=== PATIENT | male | born 1980 | race Caucasian/White ===

== ENCOUNTER 2023-12-01 20:07 | Emergency (ER) | payer OTHER, SELFPAY ==
--- NOTE | ~2023-12-01 | CT_ITS ---
EXAMINATION: CT MAXILLOFACIAL WITHOUT CONTRAST CLINICAL INFORMATION: Jaw pain, injury COMPARISON: None TECHNIQUE: Serial contiguous axial images were obtained through the maxillofacial bones without intravenous contrast. Reconstructed axial, coronal, and sagittal images were reviewed. This CT examination was performed using dose optimization techniques as appropriate, variously including the following: *Automated exposure control *Adjustment of mA and/or kV according to patient size (this includes techniques or standardized protocols for targeted exams where dose is matched to indication/reason for exam; i.e. extremities or head) *Use of iterative reconstruction technique DLP: 231 mGy-cm FINDINGS: No acute fractures are identified. The globes, lenses, extraocular muscles, optic nerves, and intraconal fat appear within normal limits bilaterally. The lamina paprycea and floor and lateral rhodes of the orbits are intact. There is no TMJ dislocation. The paranasal sinuses are clear. The mastoid air cells are well-aerated. Limited evaluation of the visualized brain is unremarkable. CT/CT facial bones wo IV con IMPRESSION: Unremarkable maxillofacial CT. Electronically signed by: Ashish Alcantar DO 12/01/2023 10:40 PM EDT
[2023-12-01 20:08] VITALS: BP 124/76; PULSE 76; RESP 18; TEMP 37.2; O2SAT 99; BMI 25.8
--- NOTE | 2023-12-01 20:10 | ED.GENADULT ---
HPI - General Adult General Chief complaint: General Medical Stated complaint: dislocated jaw? Time Seen by Provider: 12/01/23 21:04 Source: patient Mode of arrival: ambulatory Limitations: no limitations History of Present Illness ED Provider: Dr. Muna Stanton HPI narrative: Patient comes to the emergency room complaining of left-sided dropping. Patient states that earlier today he was playing with his son in a bouncy house. Patient states that as he was up in the air going down, his son jumped up and accidentally they both collided, the kits son hit the patient's jaw on the left. Patient states that he started having immediate pain. Patient able to open and close the jaw but it hurts doing so. Patient denies losing consciousness. Denies being on blood thinners. Related Data Allergies Allergy/AdvReac Type Severity Reaction Status Date / Time No Known Allergies Allergy Verified 12/01/23 20:12 Review of Systems Review of Systems: Constitutional : No Weight loss, No Fever, No Chills, No Night Sweats, No Fatigue, No Malaise ENT/Mouth : No Hearing loss, No Ear Pain, No Nasal Congestion, No Sinus Pain, No Hoarseness, No sore throat, No Rhinorrhea, No Swallowing Difficulty Eyes: No Eye Pain, No Swelling, No Redness, No Foreign Body, No Discharge, No Vision Changes Cardiovascular : No Chest Pain, No SOB, No Dyspnea on Exertion, No Orthopnea, No Edema, No Palpitations Respiratory : No Cough, No Sputum, No Wheezing, No Smoke Exposure, No Dyspnea Gastrointestinal : No Nausea, No Vomiting, No Diarrhea, No Constipation, No abdominal Pain, No Hematochezia, No Melena Genitourinary : no irregular bleeding, No Dysuria, No Urinary Frequency, No Hematuria, No Urinary Incontinence, No Urgency, No Flank Pain, No Urinary Flow Changes, No Hesitancy Musculoskeletal : Complaining of left-sided jaw pain, No joint pain, No Myalgias, No Joint Swelling Skin : No Skin Lesions, No rash Neuro : No Weakness, No Numbness, No Paresthesias, No Loss of Consciousness, No Dizziness, No Headache Psych : No Anxiety/Panic, No Depression, No SI/HI/AH/VH, No Social Issues, Heme/Lymph: No Bruising, No Bleeding,No Lymphadenopathy Endocrine : No Polyuria, No Polydipsia, No Temperature Intolerance PMFSH Social History Social History Smoked in Last 30 Days: Yes Use of substances other than those prescribed or required for medical reasons: No Advance Directives: No Advance Directives Information Provided: No Do you have a plan to hurt others: No Plan Physical Exam ED Vital Signs: Vital Signs - 24 hr 12/01/23 20:08 Temperature 98.9 F Pulse Rate 76 Respiratory Rate 18 Blood Pressure 124/76 Pulse Oximetry 99 Oxygen Delivery Method Room Air BMI result Body Mass Index 25.8 Const Other: Appearance: Alert. Oriented X3. No acute distress. Eyes: Pupils equal, round and reactive to light. ENT: Pharynx normal. Patient able to open and close the mouth but hurts doing so, no clicking I have TMJ, patient able to move his jaw side to side but hurts doing so. Neck: Normal inspection. Neck supple. No lymph nodes noted. No crepitus CVS: Normal heart rate and rhythm. Pulses normal. Normal S1 and S2 Respiratory: No respiratory distress. Breath sounds normal. No Wheezing. No rales Abdomen: Soft and nontender. No rigidity. No distention. Skin: Skin warm and dry. Normal skin color. Normal skin turgor. Extremities: No lower extremity edema. No Lacerations. No Rash Neuro: Oriented X 3. No motor deficit. No sensory deficit. Moving all extremities. No slurred speech. CN 2 through 12 grossly intact Psych: calm, cooperative, normal affect Course Course Course Narrative: This is a rapid medical exam. Deferred additional HPI, ROS, PE to primary provider. 42 yo male with no known medical history here with complaints of jaw pain after he collided with his child head while on a bounce house today.. Denies LOC. Feels he cant fully close or open jaw. Will obtain Ct facial bones [place]ASS -Kamila Tyler APRN Medications Administered Discontinued Medications Generic Name Dose Route Start Last Admin Trade Name Freq PRN Reason Stop Dose Admin Ketorolac Tromethamine 60 mg 12/01/23 21:17 12/01/23 21:22 Ketorolac Tromethamine 60 Mg/2 Ml Vial IM 12/01/23 21:18 60 mg ONCE ONE Administration Medical Decision Making Medical Decision Making MDM Narrative: Patient given a dose of IM Toradol -my interpretation of CT scan of the jaw, no obvious fracture or dislocation. -after IM injection, patient feeling better. Patient declined any prescriptions to be sent to his pharmacy Differential Diagnosis Differential Diagnoses: The differential diagnosis associated with the presentation includes (TMJ, jaw fracture, dislocation, contusion) Admission/Observation Consideration of admission/observation: Escalation of care including admission/observation considered (Given patient's mechanism of injury and presentation, observation was considered) Independent Interpretation I performed an independent interpretation of an: CT Scan Radiology Impression Discussion of test interpretation with radiology: I have reviewed the radiologist's reading. Radiologist Impression: FINDINGS: No acute fractures are identified. The globes, lenses, extraocular muscles, optic nerves, and intraconal fat appear within normal limits bilaterally. The lamina paprycea and floor and lateral rhodes of the orbits are intact. There is no TMJ dislocation. The paranasal sinuses are clear. The mastoid air cells are well-aerated. Limited evaluation of the visualized brain is unremarkable. CT/CT facial bones wo IV con IMPRESSION: Unremarkable maxillofacial CT. Critical Care Time Critical Care Time Critical Care Time: Yes Total Critical Care Time: 30 Attestation: Insert critical care team Discharge Plan Discharge Clinical Impression: Contusion of jaw Patient Disposition: Home, Self-Care Instructions: Contusion in Adults (ED) Additional Instructions: Please follow-up with your primary care physician tomorrow. If you have any worsening or new symptoms, please return to the emergency room or call [phone] Print Language: Bhutanese
[2023-12-01] MEDS: Ketorolac Tromethamine 60 MG/2 ML VIAL IM (21:22)
[2023-12-01 23:46] VITALS: BP 118/84; PULSE 76; RESP 16; TEMP 37; O2SAT 97
== END 2023-12-01 23:50 | disposition home or self-care (01) ==
PROVIDERS: Emergency Provider Emergency Medicine; PCP Internal Medicine
DX: S00.83XA Contusion of other part of head, initial encounter (principal); W51.XXXA Accidental striking against or bumped into by another person, initial encounter; Y93.44 Activity, trampolining; Y92.007 Garden or yard of unspecified non-institutional (private) residence as the place of occurrence of the external cause; Y99.9 Unspecified external cause status
CPT/HCPCS: 70486; 96372; 99284; J1885